=== PATIENT | female | born 1945 | race Caucasian/White ===

== ENCOUNTER 2019-11-24 23:49 | Emergency (ER) | payer MEDICARE, OTHER ==
--- NOTE | 2019-11-25 00:14 | EDM.PDOC ---
ED HPI GENERAL MEDICAL PROBLEM - General Chief Complaint: General Stated Complaint: MED[facility] Time Seen by Provider: 11/25/19 00:05 Source of Information: Reports: Patient, EMS History Limitations: Reports: No Limitations - History of Present Illness INITIAL COMMENTS - FREE TEXT/NARRATIVE: Patient presents by ambulance from home after having 2 near syncopal events tonight in the context of intense, large volume diarrhea. Approximately 2100 hrs. patient was returning to their [place] and she began to feel warm, sweaty, slightly dizzy and noticed a fullness feeling within the abdomen and a sensation like she needed to have a bowel movement. They were driving at the time and eventually were able to stop at a convenience store where she made it into the restroom but then felt dizzy and collapsed to the floor although she does not think she "passed out." She got up and made it into one of the stalls in the bathroom but already had some diarrheal stool output. After sitting on the toilet, she had a large bowel movement of diarrhea with some small solid pieces of stool as well. Nothing black or bloody. She continued to have some lightheaded sensation during this episode and sat on the toilet she thinks for approximately 10 minutes. Eventually, after leaving part of her soiled clothing in the bathroom, she came back out to her vehicle and family continued driving toward home. She made at home and had another episode of sudden onset intense bowel movement urge. Family members assisted her in the bathroom and then afterwards getting into a bathtub and getting cleaned. Because of the combination of symptoms as well as her picture overall, family was concerned and called 911 to arrange transport here. At this time, she feels better but still has some rumbling within the abdomen. She has had episodes of bowel obstructions in the past but this does not feel at all like those episodes. She feels weak and a little puzzled with everything that happened tonight. Onset: Today, Sudden Duration: Hour(s): (3) Location: Reports: Abdomen Severity: Moderate Improves with: Reports: None Worsens with: Reports: None Associated Symptoms: Reports: Weakness - Related Data Allergies Allergy/AdvReac Type Severity Reaction Status Date / Time Sulfa (Sulfonamide Allergy Rash Verified 11/24/19 23:59 Antibiotics) Home Meds: Home Meds Acetaminophen [Tylenol Arthritis] 650 mg PO DAILY 11/24/19 [History] Acetaminophen/Diphenhydramine [Tylenol Pm Ex-Strength Caplet] 1 tab PO BEDTIME 11/24/19 [History] Aspirin [Lo-Dose Aspirin EC] 1 mg PO DAILY 11/24/19 [History] Calcium Carbonate/Vitamin D3 [Calcium 600 + Vit D Tablet] 1 tab PO BID 11/24/19 [History] L.acidoph,Paracasei, B.lactis [Probiotic] 1 cap PO DAILY 11/24/19 [History] Lisinopril/Hydrochlorothiazide [Lisinopril-Hctz 10-12.5 mg Tab] 1 tab PO DAILY 11/24/19 [History] Metoprolol Tartrate 25 mg PO BID 11/24/19 [History] Multivitamin 1 tab PO DAILY 11/24/19 [History] Omeprazole 20 mg PO DAILY 11/24/19 [History] atorvaSTATin [Lipitor] 20 mg PO DAILY 11/24/19 [History] ED ROS GENERAL - Review of Systems Review Of Systems: See Below Constitutional: Reports: Weakness. Denies: Fever, Chills HEENT: Reports: No Symptoms Respiratory: Reports: No Symptoms Cardiovascular: Reports: No Symptoms GI/Abdominal: Reports: Abdominal Pain (With diarrhea.), Bloody Stool (A small amount of blood was noted in the toilet with the first large volume BM.), Diarrhea. Denies: Black Stool, Vomiting Musculoskeletal: Reports: No Symptoms Neurological: Reports: Dizziness Hematologic/Lymphatic: Denies: Easy Bleeding ED EXAM, GENERAL - Physical Exam Exam: See Below Free Text/Narrative:: This is an adult female sitting upright on the cart in room 4. She is an extensive historian. Exam Limited By: No Limitations General Appearance: Alert, No Apparent Distress Respiratory/Chest: No Respiratory Distress Cardiovascular: Regular Rate, Rhythm, Tachycardia GI/Abdominal: Normal Bowel Sounds, Soft, Non-Tender. No: No Distention, Guarding, Rigid Back Exam: No: CVA Tenderness (R), CVA Tenderness (L) EKG INTERPRETATION EKG Date: 11/25/19 Time: 00:38 Rhythm: NSR Rate (Beats/Min): 93 Jennings: Normal P-Wave: Present QRS: Normal ST-T: Normal QT: Normal Comparison: NA - No Prior EKG EKG Interpretation Comments: Sinus rhythm with no acute changes. Course - Vital Signs Last Recorded V/S: Last Vital Signs Temp 37.1 C 11/25/19 00:12 Pulse 97 11/25/19 00:31 Resp 16 11/25/19 00:31 BP 111/70 11/25/19 00:31 Pulse Ox 98 11/25/19 00:31 Orthostatic Blood Pressure [] 131/77 Orthostatic Blood Pressure [] 147/73 Orthostatic Blood Pressure [] 134/70 - Orders/Labs/Meds Orders: Active Orders 24 hr Category Date Time Status EKG Documentation Completion [RC] ASDIRECTED Care 11/25/19 00:20 Ordered Orthostatic Vital Signs [RC] ASDIRECTED Care 11/25/19 00:20 Ordered URINALYSIS W/MICROSCOPIC [UA W/MICROSCOPIC] [URIN] Stat Lab 11/25/19 00:20 EKG 12 Lead [EK] Routine Ther 11/25/19 00:19 Ordered Labs: Laboratory Tests 11/25/19 11/25/19 Range/Units 00:30 00:30 WBC 16.1 H (4.5-11.0) K/uL RBC 4.21 (3.30-5.50) M/uL Hgb 12.8 (12.0-15.0) g/dL Hct 39.1 (36.0-48.0) % MCV 93 (80-98) fL MCH 30 (27-31) pg MCHC 33 (32-36) % Plt Count 247 (150-400) K/uL Neut % (Auto) 81 H (36-66) % Lymph % (Auto) 9 L (24-44) % Knott % (Auto) 10 H (2-6) % Eos % (Auto) 0 L (2-4) % Baso % (Auto) 0 (0-1) % Sodium 141 (140-148) mmol/L Potassium 3.7 (3.6-5.2) mmol/L Chloride 104 (100-108) mmol/L Carbon Dioxide 29 (21-32) mmol/L Anion Gap 8.5 (5.0-14.0) mmol/L BUN 20 H (7-18) mg/dL Creatinine 0.9 (0.6-1.0) mg/dL Est Cr Clr Drug Dosing 52.12 mL/min Estimated GFR (MDRD) > 60 (>60) Glucose 146 H (74-106) mg/dL Calcium 8.9 (8.5-10.1) mg/dL Total Bilirubin 0.4 (0.2-1.0) mg/dL AST 18 (15-37) U/L ALT 28 (12-78) U/L Alkaline Phosphatase 60 (46-116) U/L Total Protein 6.7 (6.4-8.2) g/dL Albumin 3.3 L (3.4-5.0) g/dL Globulin 3.4 (2.3-3.5) g/dL Albumin/Globulin Ratio 1.0 L (1.2-2.2) - Re-Assessments/Exams Free Text/Narrative Re-Assessment/Exam: 11/25/19 01:30 Orthostatic vital signs will be evaluated. It sounds as though patient was experiencing adrenaline-related fight or flight symptoms because of the impending large volume diarrhea. 11/25/19 01:41 Orthostatic responses were okay. The patient does not feel lightheaded as she did previously. She does feel the urge for another bowel movement right now and was escorted to the bathroom. There was a small amount of blood as part of her stool output at this time. She states that it is somewhat larger and volume than amount of blood she noticed with her earlier episode. She has had colonoscopies in the past but other than polyps and diverticulosis never had any other abnormalities. I recommend nondairy diet as tolerated until symptoms are better. Ensure adequate fluid intake and avoid sudden changes in position until feeling better. Reasons to return to emergency department reviewed. 11/25/19 01:46 Departure - Departure Time of Disposition: 01:39 Disposition: Home, Self-Care 01 Clinical Impression: Near syncope, Bloody diarrhea Diarrhea Qualifiers: Diarrhea type: unspecified type Qualified Code(s): R19.7 - Diarrhea, unspecified - Discharge Information *PRESCRIPTION DRUG MONITORING PROGRAM REVIEWED*: Not Applicable *COPY OF PRESCRIPTION DRUG MONITORING REPORT IN PATIENT CECELIA: Not Applicable Instructions: Diarrhea, Adult, Bloody Diarrhea Referrals: PCP,None [Primary Care Provider] - Forms: ED Department Discharge Additional Instructions: Ensure adequate fluid intake today. Take in small amounts regularly of nondairy foods until feeling better. Avoid sudden changes in position. Hopefully the bloody diarrheal episodes will be short-lived. Recheck with primary care as scheduled on Tuesday. Return to ER if feeling worse in anyway. Sepsis Event Note - Focused Exam Vital Signs: Vital Signs Temp Pulse Resp BP Pulse Ox 11/25/19 00:31 97 16 111/70 98 11/25/19 00:12 37.1 C 98 18 151/65 H 98 11/24/19 23:50 37.0 C 96 16 151/65 H 98 Date Exam was Performed: 11/25/19 Time Exam was Performed: 01:29 - My Orders Last 24 Hours: My Active Orders 11/25/19 00:19 EKG 12 Lead [EK] Routine 11/25/19 00:20 EKG Documentation Completion [RC] ASDIRECTED Orthostatic Vital Signs [RC] ASDIRECTED URINALYSIS W/MICROSCOPIC [UA W/MICROSCOPIC] [URIN] Stat - Assessment/Plan Last 24 Hours: My Active Orders 11/25/19 00:19 EKG 12 Lead [EK] Routine 11/25/19 00:20 EKG Documentation Completion [RC] ASDIRECTED Orthostatic Vital Signs [RC] ASDIRECTED URINALYSIS W/MICROSCOPIC [UA W/MICROSCOPIC] [URIN] Stat
== END 2019-11-25 02:09 | disposition home or self-care (01) ==
LOC: JP.ED 23:49
DX: R55 Syncope and collapse (principal); K92.1 Melena; Z88.2 Allergy status to sulfonamides; Z79.82 Long term (current) use of aspirin; Z79.899 Other long term (current) drug therapy
CPT/HCPCS: 36415; 80053; 85025; 93005; 99283; 99284-25